=== PATIENT | male | born 1955 | race Caucasian/White ===

== ENCOUNTER → 2016-11-02 | Day surgery (SDC) | payer OTHER ==
[~2016-11-02] MED LIST: IV RINGERS SOLUTION,LACTATED 1,000 ML IV ONE; PROPOFOL 40 ML IV ONE
--- NOTE | 2016-11-06 10:33 | PATHOLOGY ---
PATHOLOGY REPORT * * * * * * * * FINAL DIAGNOSIS: Colon, descending, biopsy: - Hyperplastic polyp, 3 fragments. (SKM:arash; 11/06/2016) REPORT ELECTRONICALLY SIGNED BY: Indu Rey M.D. DATE/TIME: 11/06/2016 10:32 * * * * * * * * GROSS PATHOLOGY: Received in formalin labeled "Loren Garcia descending colon polyp," are 3 segments of babin soft tissue measuring 1.4 x 0.3 x 0.2 cm in aggregate dimensions and ranging from 0.3 to 0.5 cm in maximum dimension. The specimen is submitted entirely in cassette A1. (TSD; 11/03/2016) INITIAL CPT CODE(S): A; 68917 Professional services performed [place] [email or web address] [address] Technical services performed by [email or web address] at [address] [place] [address]. SPECIMEN(S) RECEIVED: A.Descending colon polyp CLINICAL HISTORY: Colon screening, history of colon polyps PATIENT: RENETTA LOREN Rosario /AGE: 8 1955 (Age: 61) PATIENT #: [id number] ALT CASE #: SPECIMEN COLLECTION DATE: 11/02/2016 SPECIMEN RECEIVED DATE: 11/03/2016 [facility] - [address] [place] [address] - PHONE: [phone] * * * END OF REPORT * * *
== END | disposition home or self-care (01) ==
LOC: SURG 07:05
PROVIDERS: ATTEND Internal Medicine Gastroenterology
DX: Z09 Encounter for follow-up examination after completed treatment for conditions other than malignant neoplasm (principal); Z87.19 Personal history of other diseases of the digestive system; D12.4 Benign neoplasm of descending colon; I10 Essential (primary) hypertension; J30.9 Allergic rhinitis, unspecified
CPT/HCPCS: 45385; 88305; J2704; J7120; 45380; 99156; 99157

== ENCOUNTER → 2019-04-04 | Outpatient (CLI) | payer OTHER ==
--- NOTE | 2019-04-04 12:19 | RAD ---
SHOULDER 2+V RIGHT History: Arm and back pain. Technique: 3 views right shoulder. Comparison: None. Findings: Normal alignment of the glenohumeral and acromioclavicular joints. No fracture. Soft tissues unremarkable. Density within the region of the rotator cuff, may indicate calcific tendinosis. Impression: 1. No acute osseous abnormality. Electronically signed by: Torrey Talley DO (04/04/2019 12:16 PM) [id number]
--- NOTE | 2019-04-04 12:21 | RAD ---
LUMBAR SPINE 2-3V History: Back pain. Technique: 3 views lumbar spine. Comparison: CT lumbar spine January 17, 2005 Findings: Straightening of the normal lumbar lordosis. Otherwise, normal alignment. Normal vertebral body height. No fracture. Moderate multilevel degenerative disc changes most prominent L4-L5. Multilevel facet arthropathy. Impression: 1. No acute osseous abnormality. 2. Moderate multilevel lumbar spondylosis. Electronically signed by: Torrey Talley DO (04/04/2019 12:18 PM) [id number]
--- NOTE | 2019-04-04 12:22 | RAD ---
HIP RIGHT 2 VIEW History: Pain. Technique: 2 views right hip. Comparison: None. Findings: Advanced right hip DJD. Normal alignment. No fracture. Mild coxa profunda. Impression: 1. No acute osseous abnormality. 2. Advanced right hip DJD. Electronically signed by: Torrey Talley DO (04/04/2019 12:20 PM) [id number]
== END | disposition home or self-care (01) ==
LOC: DXRAD 11:37
PROVIDERS: ATTEND Family Medicine
DX: M47.26 Other spondylosis with radiculopathy, lumbar region (principal); M51.16 Intervertebral disc disorders with radiculopathy, lumbar region; M16.11 Unilateral primary osteoarthritis, right hip; M40.46 Postural lordosis, lumbar region; M25.511 Pain in right shoulder
CPT/HCPCS: 72100; 73030; 73502

== ENCOUNTER → 2019-10-06 | Outpatient (CLI) | payer OTHER | END | disposition home or self-care (01) | LOC: LAB 07:29 | PROVIDERS: ATTEND Orthopaedic Surgery | DX: Z79.01 Long term (current) use of anticoagulants (principal) | CPT/HCPCS: 36415; 85610 ==

== ENCOUNTER → 2019-11-12 | Outpatient (CLI) | payer OTHER ==
--- NOTE | 2019-11-12 15:35 | RAD ---
EXAM: HIP RIGHT 2V WITH PELVIS 11/12/2019 12:00 AM CLINICAL INDICATION:Post right hip replacement COMPARISON:Right hip radiograph 04/04/2019 TECHNIQUE:AP view the pelvis and AP and frog-leg lateral view of the right hip FINDINGS:There is a new right total hip prosthesis in appropriate alignment. No periprosthetic lucency or fracture. There is mild left hip joint space narrowing. Pubic symphysis, sacroiliac joints, and lower lumbar spine are normal. IMPRESSION: Uncomplicated right total hip prosthesis. Electronically signed by: Francoise Hunt MD (11/12/2019 3:31 PM) [id number]
== END ==
LOC: DXRAD 08:38
PROVIDERS: ATTEND Physician Assistant
DX: M25.551 Pain in right hip (principal); Z96.641 Presence of right artificial hip joint; M25.852 Other specified joint disorders, left hip
CPT/HCPCS: 73502

== ENCOUNTER 2020-03-10 00:27 | Emergency (ER) | payer OTHER ==
[~2020-03-10] VITALS: Ht 182.9 cm; Wt 100.0 kg
[2020-03-10] MEDS ORDERED: ATROPINE SULFATE 1 MG VIAL ONE (00:44)
--- NOTE | 2020-03-10 00:49 | PHYS DOC ---
Past History Past Medical History: Arthritis, CAD, Diabetes, High Cholesterol, Hypertension, AK Past Surgical History: Hip Replacement General Adult HPI: HPI: ".. He passed out.. or something .. I heard a thump in the bathroom.. He was on the floor.. and acted like he passed out..and maybe a seizure.. he did have some dry heaves.. but he was able to get up and come with me here.. I brought him in the car...his only health hx. is HTN.. and bad insomnia...he take Ambien.. and he act really off after he takes it for bed..." ( ) " The last thing I remember was I was getting ready for bed..." Patient is a 64 year old male who presents with above hx and complaints of syncope . Pt. presents in 3rd degree atrial bradycardia with Ventricle escape. Patient given 1 mg atropine x2. Patient placed on cardiac pacer and dopamine drip started. ( Epi- not available.) Discussed presentation, testing and tx plan with Dr. Link and Dr Oshea at 0100. Patient does have a history of previous cardiac event/AK when he had his right hip replaced. Patient does have a history of diabetes, elevated cholesterol, severe insomnia and hypertension. Patient normally follows with Dr. Ramirez. No recent travel or specific ill contacts. Has been compliant with his hypertensive meds. Did take Ambien before going to bed tonight. Review of Systems: Review of Systems: Constitutional: Denies fever or chills Eyes: Denies change in visual acuity HENT: Denies nasal congestion or sore throat Respiratory: Denies cough or shortness of breath Cardiovascular: Denies chest pain or edema . Complains of slow heart rate. Syncope GI: Denies abdominal pain,, bloody stools or diarrhea . Complaints of nausea and vomiting. : Denies dysuria Musculoskeletal: Denies back pain or joint pain Integument: Denies rash Neurologic: Denies headache, focal weakness or sensory changes Endocrine: Denies polyuria or polydipsia Lymphatic: Denies swollen glands Psychiatric: Denies depression or anxiety Family History: Family History: Cardiac disease or AK at age 60 with family members Current Medications: Current Meds: See nursing for home meds Allergies: Allergies: Allergies Coded Allergies Type Severity Reaction Last Updated Verified Unable to Assess 11/4/17 No Physical Exam: PE: Constitutional: moderate acute distress, non-toxic appearance. [] HENT: Normocephalic, atraumatic, bilateral external ears normal, oropharynx moist, no oral exudates, nose normal. [] Eyes: PERRLA, EOMI, conjunctiva normal, no discharge. [] Neck: Normal range of motion, no tenderness, supple, no stridor. [] Cardiovascular: Bradycardia heart rate regular rhythm, no murmur [, PMI slightly to the left Lungs & Thorax: Bilateral breath sounds clear to auscultation [] Abdomen: Bowel sounds normal, soft, no tenderness, no masses, no pulsatile ma sses. [] Skin: Warm, dry, no erythema, no rash. [] Back: No tenderness, no CVA tenderness. [] Extremities: No tenderness, no cyanosis, no clubbing, ROM intact, no edema. Arthritic changes Neurologic: Alert and oriented X 3, normal motor function, normal sensory function, no focal deficits noted. [] Psychologic: Affect anxious , judgement normal, mood normal. [] EKG: EKG: My interpretation EKG 1 showed a third-degree block heart rate of 27. Fascicular block. Does have some findings of third-degree block atrial. There is to be an escape ventricular rhythm. My interpretation EKG #2 shows a overall rate of 44 with intermittent pacer spikes. Radiology/Procedures: Radiology/Procedures: [] [address] [place] [address] IMAGING REPORT Signed PATIENT: LOREN JACKSON ACCOUNT: [id number] : 1955 LOCATION: ER AGE: 64 SEX: M EXAM STATUS: REG ER ORD. PHYSICIAN: GALO ROSENTHAL MD REASON: malick,htn PROCEDURE: PORTABLE CHEST 1V AP chest x-ray HISTORY: Bradycardia, hypertension. FINDINGS: Heart size normal. Mediastinal silhouette is normal. No pneumothorax, pulmonary opacities or pleural effusions. Bones are unremarkable. IMPRESSION: No acute process. Electronically signed by: Cedric Alexandre MD (03/10/2020 1:04 AM) [facility] [place] DICTATED AND SIGNED BY: CEDRIC ALEXANDRE MD DATE: 03/10/20 0102 CC: SENAIT RAMIREZ MD; GALO ROSENTHAL MD ~MTH0 0 Heart Score: HEART Score for Chest Pain: HEART Score for Chest Pain Response (Comments) Value History Moderately Suspicious 1 ECG Nonspecific Repolarizatio 1 Age >45 - < 65 1 Risk Factors 1 or 2 Risk Factors 1 Troponin < Normal Limit 0 Total 4 Risk Factors: Risk Factors: DM, Current or recent (<one month) smoker, HTN, HLP, family history of CAD, obesity. Risk Scores: Score 0 - 3: 2.5% MACE over next 6 weeks - Discharge Home Score 4 - 6: 20.3% MACE over next 6 weeks - Admit for Clinical Observation Score 7 - 10: 72.7% MACE over next 6 weeks - Early Invasive Strategies Course & Med Decision Making: Course & Med Decision Making Pertinent Labs and Imaging studies reviewed. (See chart for details) Discussed presentation, testing and treatment plan with Dr. Link and Dr. Oshea cardiology . Patient accepted at [facility] Dr. Link. Plan external pacing for now. Serial trops. Will anticoagulate with Lovenox. Use dopamine drip titrated up to maximum of 10 mics per kilo. ( Epi qtt not currently available.) Critical care 60 min. Impression 1. Bradycardia-appears to be 3rd degree atrial block with ventricular escape 2. Hypertension 3. Diabetes glucose 254 4. AST and ALT elevated. 75/90 [] Dragon Disclaimer: Dragon Disclaimer: This electronic medical record was generated, in whole or in part, using a voice recognition dictation system. Departure Departure: Referrals: SENAIT RAMIREZ MD (PCP) Dragon Disclaimer This chart was dictated in whole or in part using Voice Recognition software in a busy, high-work load, and often noisy Emergency Department environment. It may contain unintended and wholly unrecognized errors or omissions. Dragon Disclaimer This chart was dictated in whole or in part using Voice Recognition software in a busy, high-work load, and often noisy Emergency Department environment. It may contain unintended and wholly unrecognized errors or omissions. Dragon Disclaimer This chart was dictated in whole or in part using Voice Recognition software in a busy, high-work load, and often noisy Emergency Department environment. It may contain unintended and wholly unrecognized errors or omissions. Dragon Disclaimer This chart was dictated in whole or in part using Voice Recognition software in a busy, high-work load, and often noisy Emergency Department environment. It may contain unintended and wholly unrecognized errors or omissions. Dragon Disclaimer This chart was dictated in whole or in part using Voice Recognition software in a busy, high-work load, and often noisy Emergency Department environment. It may contain unintended and wholly unrecognized errors or omissions. GALO ROSENTHAL MD Mar 10, 2020 00:49
[2020-03-10] MEDS ORDERED: EPINEPHrine 5 MG in IV NORMAL SALINE 250ML 250 ML IV PRN (01:00)
--- NOTE | 2020-03-10 01:06 | RAD ---
AP chest x-ray HISTORY: Bradycardia, hypertension. FINDINGS: Heart size normal. Mediastinal silhouette is normal. No pneumothorax, pulmonary opacities o r pleural effusions. Bones are unremarkable. IMPRESSION: No acute process. Electronically signed by: Mayo Alexandre MD (03/10/2020 1:04 AM) [facility]
[2020-03-10 01:29] LABS: BASO % 0 % (0-3); EOS # 0.2 x10^3/uL (0.0-0.7); EOS % 2 % (0-3); HEMATOCRIT 47.2 % (39.0-53.0); HEMOGLOBIN 15.5 g/dL (13.0-17.5); LYMPH # 3.4 x10^3/uL (1.0-4.8); LYMPH % 37 % (24-48); MEAN CORPUSCULAR HEMOGLOBIN 30 pg (25-35); MEAN CORPUSCULAR HGB CONC 33 g/dL (31-37); MEAN CORPUSCULAR VOLUME 91 fL (79-100); MONO # 0.5 x10^3/uL (0.0-1.1); MONO % 5 % (0-9); NEUT # 5.1 x10^3uL (1.8-7.7); NEUT % 56 % (31-73); PLATELET COUNT 164 x10^3/uL (140-400); RED CELL DISTRIBUTION WIDTH 14.9 % (11.5-14.5); WHITE BLOOD COUNT 9.2 x10^3/uL (4.0-11.0)
[2020-03-10] MEDS ORDERED: ATROPINE 0.5 MG/5 ML DISP.SYRIN. IV ONE ×3 (01:30→02:15)
[2020-03-10] MEDS ORDERED: ONDANSETRON PF 4 MG/2 ML VIAL. IVP ONE (01:30)
[2020-03-10] MEDS ORDERED: IV RINGERS SOLUTION,LACTATED 1,000 ML IV SCH (01:30)
[2020-03-10] MEDS ORDERED: ASPIRIN CHEWABLE 81 MG TABLET. PO ONE (01:30)
[2020-03-10] MEDS ORDERED: MORPHINE SULFATE 2 MG/ML DISP.SYRIN. IV ONE (01:30)
[2020-03-10 01:38] LABS: CALCIUM 8.9 mg/dL (8.5-10.1); CREATININE 1.1 mg/dL (0.7-1.3); GFR 67.8; POTASSIUM 3.6 mmol/L (3.5-5.1)
[2020-03-10 01:44] LABS: ALBUMIN 3.6 g/dL (3.4-5.0); DIRECT BILIRUBIN 0.2 mg/dL (0.0-0.2); TOTAL BILIRUBIN 0.4 mg/dL (0.2-1.0); TOTAL PROTEIN 7.4 g/dL (6.4-8.2)
--- NOTE | 2020-03-10 01:46 | EKG ---
[address] [address] Test Date: 2020-03-10 Test Time: 00:38:05 Pat Name: LOREN JACKSON Department: Room: Gender: M [employer] Operator Helper: : 1955 Requested By: GALO ROSENTHAL Order Number: [id number] Reading MD: Tomer Villar Measurements Intervals [place] Rate: 27 P: 41 IN: 156 QRS: 263 QRSD: 180 T: 77 QT: 580 QTc: 392 Interpretive Statements SINUS RHYTHM WITH HIGH GRADE SECOND DEGREE AV BLOCK LEFT ANTERIOR FASCICULAR BLOCK NON SPECIFIC INTRAVENTRICULAR CONDUCTION DELAY Electronically Signed On 03-16-2020 10:00:58 TERMITE EXTERMINATOR by Tomer Villar
[2020-03-10 02:46] VITALS: BP 131/64
[2020-03-10] MEDS ORDERED: PROCHLORPERAZINE 10 MG/2 ML VIAL. IV ONE (03:00)
[2020-03-10] MEDS ORDERED: diphenhydrAMINE 50 MG/ML VIAL IVP ONE (03:00)
[2020-03-10] MEDS ORDERED: MORPHINE SULFATE 10 MG/ML SYRINGE. IVP ONE (03:30)
--- NOTE | 2020-03-10 04:11 | EKG ---
[address] [address] Test Date: 2020-03-10 Test Time: 01:34:29 Pat Name: LOREN JACKSON Department: Room: Gender: M Law Office Assistant: : 1955 Requested By: GALO ROSENTHAL Order Number: [id number] Reading MD: Tomer Villar Measurements Intervals [place] Rate: 0 P: MS: QRS: 0 QRSD: 0 T: 0 QT: 0 QTc: 0 Interpretive Statements TANSCUTANEOUS PACING WITHOUT APPARENT CAPTURE HIGH GRADE SECOND DEGREE AVB ON PRIOR EKG Electronically Signed On 03-16-2020 10:02:32 SMOKING PIPE COATER by Tomer Villar
[2020-03-10] MEDS ORDERED: MORPHINE SULFATE 2 MG/ML DISP.SYRIN. IVP ONE (06:00)
== END 2020-03-10 03:30 | disposition short-term general hospital (02) ==
LOC: ER 00:27
DX: R00.1 Bradycardia, unspecified (principal); I10 Essential (primary) hypertension; E11.9 Type 2 diabetes mellitus without complications; R79.89 Other specified abnormal findings of blood chemistry; M19.90 Unspecified osteoarthritis, unspecified site; I25.10 Atherosclerotic heart disease of native coronary artery without angina pectoris; E78.00 Pure hypercholesterolemia, unspecified; I25.2 Old myocardial infarction; G47.00 Insomnia, unspecified; Z96.649 Presence of unspecified artificial hip joint
CPT/HCPCS: 36415; 71045; 80048; 80061; 80076; 82550; 84484; 85025; 85730; 93005; 96365; 96366; 96375; 96376; 99285; J0780; J1200; J1265; J2270; J2405; J7120

== ENCOUNTER → 2021-04-23 | Outpatient (CLI) | payer OTHER ==
[2021-04-23 09:50] LABS: BASO % 1 % (0-3); EOS % 1 % (0-3); HEMATOCRIT 48.5 % (39.0-53.0); HEMOGLOBIN 16.2 g/dL (13.0-17.5); LYMPH # 1.5 x10^3/uL (1.0-4.8); LYMPH % 33 % (24-48); MEAN CORPUSCULAR HEMOGLOBIN 31 pg (25-35); MEAN CORPUSCULAR HGB CONC 33 g/dL (31-37); MEAN CORPUSCULAR VOLUME 92 fL (79-100); MONO # 0.3 x10^3/uL (0.0-1.1); MONO % 6 % (0-9); NEUT # 2.8 x10^3uL (1.8-7.7); NEUT % 59 % (31-73); PLATELET COUNT 140 x10^3/uL (140-400); RED BLOOD COUNT 5.26 x10^6/uL (4.30-5.70); RED CELL DISTRIBUTION WIDTH 14.2 % (11.5-14.5); WHITE BLOOD COUNT 4.7 x10^3/uL (4.0-11.0)
[2021-04-23 10:08] LABS: ALBUMIN 4.2 g/dL (3.4-5.0); ALBUMIN/GLOBULIN RATIO 1.1 (1.0-1.7); CREATININE 0.9 mg/dL (0.7-1.3); GFR 85.2; POTASSIUM 4.1 mmol/L (3.5-5.1); TOTAL PROTEIN 8.1 g/dL (6.4-8.2)
[2021-04-23 11:03] LABS: BACTERIA,URINE 0 /HPF (0-FEW); CLARITY,URINE CLEAR; COLOR,URINE YELLOW; GLUCOSE,URINE NEG (NEG); NITRITE,URINE NEG (NEG); RBC,URINE OCC /HPF (0-2); WBC,URINE OCC /HPF (0-4)
[2021-04-23 15:43] LABS: CHOLESTEROL/HDL RATIO 6.3; THYROID STIM HORMONE (TSH) 1.078 uIU/mL (0.358-3.740)
== END ==
LOC: LAB 08:30
PROVIDERS: ATTEND Nurse Practitioner Adult Health
DX: I10 Essential (primary) hypertension (principal); E78.2 Mixed hyperlipidemia; E03.9 Hypothyroidism, unspecified; R35.1 Nocturia
CPT/HCPCS: 36415; 80053; 80061; 81001; 84153; 84443; 85025; G0103